=== PATIENT | female | born 2000 | race Caucasian/White ===

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

== ENCOUNTER 2018-01-07 11:03 | Emergency (ER) | payer BC, OTHER ==
[2018-01-07 11:21] VITALS: PULSE 82
--- NOTE | 2018-01-07 11:53 | ED ---
Back Pain HPI - General Chief Complaint: Back Pain/Injury Stated Complaint: [facility] - BACK INJURY Time Seen by Provider: 01/07/18 11:23 Source: patient Limitations: no limitations - History of Present Illness Initial Comments: 17-year-old female presented for evaluation of right lower back pain. 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 She states since then she has had continued pain that will occasionally radiate down her leg to her right big toe. Denies any saddle anesthesia, lower extremity weakness, or urinary or bladder regularities. There is no midline pain she denies any drug use. - Related Data Home Medications Medication Instructions Recorded Confirmed Apri 28 1 tab PO DAILY 11/03/17 01/07/18 Previous Rx's Medication Instructions Recorded HYDROcodone/APAP 5-325MG [[place] 1 - 2 tab PO Q6HR PRN #12 tab 01/07/18 5-325] Allergies Allergy/AdvReac Type Severity Reaction Status Date / Time No Known Allergies Allergy Verified 01/07/18 11:30 Review of Systems ROS Statement: Those systems with pertinent positive or pertinent negative responses have been documented in the HPI. ROS Other: All systems not noted in ROS Statement are negative. Constitutional: Denies: fever, chills Respiratory: Denies: cough, dyspnea Cardiovascular: Denies: chest pain, palpitations Gastrointestinal: Denies: abdominal pain, nausea, vomiting Genitourinary: Reports: other (Negative for Urinary retention or bowel incontinence). Denies: urgency, dysuria Musculoskeletal: Reports: back pain Neurological: Reports: other (Pain radiating down the right leg). Denies: weakness, numbness, paresthesias, abnormal gait Past Medical History Past Medical History: No Reported History History of Any Multi-Drug Resistant Organisms: MRSA Date of last positivie culture/infection: 2014 MDRO Source:: foot Past Surgical History: Adenoidectomy, Ear Surgery, Hernia Repair, Tonsillectomy Additional Past Surgical History / Comment(s): jaw Past Psychological History: No Psychological Hx Reported Smoking Status: Never smoker Past Alcohol Use History: None Reported Past Drug Use History: None Reported General Exam Limitations: no limitations General appearance: alert, in no apparent distress Head exam: Present: atraumatic, normocephalic, normal inspection Eye exam: Present: normal appearance, PERRL, EOMI Respiratory exam: Present: normal lung sounds bilaterally. Absent: respiratory distress Cardiovascular Exam: Present: regular rate, normal rhythm Rectal exam: Present: deferred Extremities exam: Present: normal inspection, full ROM Back exam: Present: tenderness, muscle spasm, paraspinal tenderness. Absent: vertebral tenderness Neurological exam: Present: alert, oriented X3, CN II-XII intact, normal gait, reflexes normal. 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 She states that pain radiates down her right leg. On physical examination there is right paraspinal muscle tenderness that also feels to be in spasm. There is no saddle anesthesia, lower extremity weakness, or decrease in reflexes. There is no midline vertebral tenderness to palpation no overlying erythema or bulging. Straight leg test on the right is positive and negative on the left. Concern for lumbar radiculopathy and will send home with limitations for work and instructions to follow-up with her primary care physician for further treatment and evaluation. She is further advised to return to this facility if her symptoms should worsen or persist. The patient acknowledged an understanding of all information provided and agreed with this plan of care. Disposition Clinical Impression: Lumbar radiculopathy, Mechanical back pain Disposition: HOME SELF-CARE Condition: Stable Instructions: Acute Low Back Pain (ED) Additional Instructions: Please use medication as discussed. Please follow up with family doctor if symptoms have not improved over the next two days. Please return to the emergency room if your symptoms increase or worsen or for any other concerns. Prescriptions: HYDROcodone/APAP 5-325MG [[place] 5-325] 1 - 2 tab PO Q6HR PRN #12 tab PRN Reason: Analgesia Is patient prescribed a controlled substance at d/c from ED?: Yes When asked, does pt state using other controlled substances?: No If prescribed controlled substance>3 days was MAPS reviewed?: Prescribed <3 Days If opioid is for acute pain is fill amount 7 days or less?: Yes If Rx opioid, was Start Talking consent form obtained?: No Referrals: Feliz Garcia MD [STAFF PHYSICIAN] - 1-2 days Time of Disposition: 11:53
[2018-01-07 12:08] VITALS: BP 121/68; RESP 16; TEMP 97.8
== END 2018-01-07 12:00 | disposition home or self-care (01) ==
LOC: EC 11:03
DX: M54.16 Radiculopathy, lumbar region (principal); Z86.14 Personal history of Methicillin resistant Staphylococcus aureus infection; Z79.3 Long term (current) use of hormonal contraceptives
CPT/HCPCS: 99283

== ENCOUNTER → 2018-01-08 | Outpatient (CLI) | payer BC ==
--- NOTE | 2018-01-08 14:38 | XR ---
EXAMINATION TYPE: XR lumbar spine 2 or 3V DATE OF EXAM: 01/08/2018 CLINICAL HISTORY: Low back pain after lifting injury 2 weeks ago. TECHNIQUE: Frontal and lateral images of the lumbar spine are obtained. COMPARISON: None FINDINGS: There are 5 lumbar type vertebral bodies identified. There is transitional-type L6 vertebr a sacralized on the right. The lumbar spine shows slight dextroconvex scoliotic curvature centered L 3 level without evidence of acute fracture or dislocation. There is mild disc space narrowing L5-L6 a nd moderate disc space narrowing L6-S1 levels. Vertebral body heights and disk space heights otherwis e are within normal limits. The overlying soft tissue appears unremarkable. IMPRESSION: As above.
== END | disposition home or self-care (01) ==
LOC: RADXRMAIN 14:13
PROVIDERS: ATTEND Emergency Medicine
DX: M48.061 Spinal stenosis, lumbar region without neurogenic claudication (principal); M43.8X6 Other specified deforming dorsopathies, lumbar region
CPT/HCPCS: 72100

== ENCOUNTER → 2018-01-28 | Outpatient (CLI) | payer OTHER ==
--- NOTE | 2018-01-29 10:39 | MR ---
EXAMINATION TYPE: MR lumbar spine wo con DATE OF EXAM: 01/28/2018 COMPARISON: 01/08/2018 HISTORY: Strain of Muscle, fascia and tendon of low back TECHNIQUE: Multiplanar, multisequence images of the lumbar spine were acquired. TECHNIQUE: The lumbar spine vertebral body heights and alignment are maintained. A too small to accur ately characterize 5 mm partially exophytic left renal lesion is seen on T2 nonfat sat axial image 28 . This is T1 hypointense. There is intervertebral disc desiccation at L5-S1 (what is described as S1 on today's examination with a rudimentary disc is described as an L6 transitional-type vertebral body on the prior exam of 01/08/2018). Conus medullaris is unremarkable terminating at L1. L1-L2: Normal disc appearance without desiccation. No herniation, protrusion or disc bulging. No ca nal stenosis is present. Foramina are patent bilaterally. L2-L3: Normal disc appearance without desiccation. No herniation, protrusion or disc bulging. No ca nal stenosis is present. Foramina are patent bilaterally. L3-L4: Normal disc appearance without desiccation. No herniation, protrusion or disc bulging. No ca nal stenosis is present. Foramina are patent bilaterally. L4-L5: There is a very small broad-based disc bulge as there is flattening in the usual disc concavit y posteriorly without disc desiccation. No herniation, protrusion or disc bulging. No canal stenosi s is present. Foramina are patent bilaterally. L5-S1: There is a small central disc herniation superimposed upon a broad-based disc bulge that creat es mild bilateral neural foraminal narrowing without significant spinal canal stenosis is the spinal canal measures 1.0 cm in anterior posterior dimension. This does abut the ventral thecal sac. There i s mild facet arthropathy at this level. IMPRESSION: 1. Small central disc herniation at L5-S1 and degenerative disc disease resulting in mild bilateral n eural foraminal narrowing without spinal canal stenosis (note is made of rudimentary disc at S1-S2 no payton on today's examination with S1 described as an L6 transitional-type vertebrae on the prior exam). 2. Too small to accurately characterize left renal lesion that could represent a renal cyst. 3. No evidence of vertebral body height loss or malalignment.
== END | disposition home or self-care (01) ==
LOC: RADMRIMAIN 12:44
PROVIDERS: ATTEND Emergency Medicine
DX: S39.012D Strain of muscle, fascia and tendon of lower back, subsequent encounter (principal); M99.73 Connective tissue and disc stenosis of intervertebral foramina of lumbar region; M51.27 Other intervertebral disc displacement, lumbosacral region; M51.37 Other intervertebral disc degeneration, lumbosacral region
CPT/HCPCS: 72148

== ENCOUNTER → 2019-08-02 | Outpatient (CLI) | payer MEDICAID ==
--- NOTE | 2019-08-02 08:39 | CT ---
EXAMINATION TYPE: CT abdomen w con DATE OF EXAM: 08/02/2019 HISTORY: Upper Umbilical pain for patient. Incisional hernia per order. CT DLP: 443.5mGycm Automated Exposure Control for Dose Reduction was Utilized. CONTRAST: CT scan of the abdomen is performed without oral but with IV Contrast, patient injected with 100 mL o f Isovue 300. COMPARISON: None. FINDINGS: LUNG BASES: No significant abnormality is appreciated. LIVER/GB: No significant abnormality is appreciated. PANCREAS: No significant abnormality is seen. SPLEEN: No significant abnormality is seen. ADRENALS: No significant abnormality is seen. KIDNEYS: No significant abnormality is seen. BOWEL: No suspicious small or large bowel dilatation. Suboptimal evaluation bowel without enteric co ntrast. Mild wall thickening of jejunal loops presumed related to poor distention. LYMPH NODES: No greater than 1cm abdominal or pelvic lymph nodes are appreciated. OSSEOUS STRUCTURES: Transitional type vertebra lumbosacral junction. Posterior right paracentral disc herniation L5-L6 level with facet arthropathy effacing the anterior thecal sac axial image 58. OTHER: Metallic umbilical ornament. No suspicious ventral wall hernia IMPRESSION: No significant acute finding is seen to account for patient's clinical symptoms of upper umbilical pain.
== END | disposition home or self-care (01) ==
LOC: RADCTMAIN 07:34
PROVIDERS: ATTEND Surgery
DX: K43.0 Incisional hernia with obstruction, without gangrene (principal)
CPT/HCPCS: 74160; Q9967

== ENCOUNTER 2019-12-24 08:07 | Emergency (ER) | payer MEDICAID ==
[2019-12-24 08:13] VITALS: TEMP 98.1
[2019-12-24] MEDS ORDERED: ACETAMINOPHEN TAB 325 MG TAB PO STA (08:28)
[2019-12-24] MEDS ORDERED: FAMOTIDINE 20 MG/2 ML VIAL IV STA (08:29)
[2019-12-24] MEDS ORDERED: ONDANSETRON 4 MG/2 ML VIAL IVP STA (08:29)
--- NOTE | 2019-12-24 08:31 | ED ---
General Adult HPI - General Chief complaint: Shortness of Breath Stated complaint: Cough Time Seen by Provider: 12/24/19 08:16 Source: patient, RN notes reviewed Mode of arrival: ambulatory Limitations: no limitations - History of Present Illness Initial comments: Patient is a pleasant 19-year-old female presenting to the emergency Department with complaints of concern for coronal virus. 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 He should start of symptoms 2 days ago. Patient has chills. Patient has cough and dyspnea. Cough is dry nonproductive. Patient does have intermittent abdominal cramping with nausea and diarrhea. Patient has headaches. - Related Data Home Medications Medication Instructions Recorded Confirmed Apri 28 1 tab PO DAILY 11/03/17 01/07/18 Previous Rx's Medication Instructions Recorded HYDROcodone/APAP 5-325MG [[place] 1 - 2 tab PO Q6HR PRN #12 tab 01/07/18 5-325] Allergies Allergy/AdvReac Type Severity Reaction Status Date / Time No Known Allergies Allergy Verified 12/24/19 08:14 Review of Systems ROS Statement: Those systems with pertinent positive or pertinent negative responses have been documented in the HPI. ROS Other: All systems not noted in ROS Statement are negative. Constitutional: Denies: fever Eyes: Denies: eye pain ENT: Denies: ear pain Respiratory: Reports: cough, dyspnea Cardiovascular: Denies: chest pain Endocrine: Reports: fatigue Gastrointestinal: Reports: abdominal pain, nausea, diarrhea. Denies: vomiting Genitourinary: Denies: dysuria Musculoskeletal: Denies: back pain Skin: Denies: rash Neurological: Denies: weakness Past Medical History Past Medical History: No Reported History History of Any Multi-Drug Resistant Organisms: MRSA Date of last positivie culture/infection: 2014 MDRO Source:: foot Past Surgical History: Adenoidectomy, Ear Surgery, Hernia Repair, Tonsillectomy Additional Past Surgical History / Comment(s): jaw Past Psychological History: No Psychological Hx Reported Smoking Status: Never smoker Past Alcohol Use History: Occasional Past Drug Use History: None Reported General Exam Limitations: no limitations General appearance: alert, in no apparent distress Head exam: Present: normocephalic Eye exam: Present: normal appearance, PERRL ENT exam: Present: normal oropharynx Neck exam: Present: normal inspection Respiratory exam: Present: normal lung sounds bilaterally Cardiovascular Exam: Present: regular rate, normal rhythm Expanded Peripheral pulses: 2+: Dorsalis Pedis (R), Dorsalis Pedis (L) GI/Abdominal exam: Present: soft. Absent: tenderness Extremities exam: Present: normal inspection. Absent: pedal edema, calf tenderness Neurological exam: Present: alert Psychiatric exam: Present: normal affect, normal mood Skin exam: Present: normal color Course Vital Signs 12/24/19 12/24/19 12/24/19 08:09 08:16 09:13 Temperature 98.1 F Pulse Rate 90 89 Respiratory 18 18 18 Rate Blood Pressure 131/90 O2 Sat by Pulse 100 99 Oximetry EKG Findings - EKG Comments: EKG Findings:: Normal sinus rhythm 72. KS 140. QRS 82. QT 414. QTC 453. Normal axis. Normal QRS. No acute ST change. Sinus arrhythmia. Medical Decision Making - Medical Decision Making Patient reevaluated and resting comfortably in bed. Patient is feeling somewhat better. Patient is updated on results and need for follow-up. Patient given note for off work until released by primary care physician. Patient is made aware that there is possibility of coronavirus infection even if test comes back negative. - Lab Data Result diagrams: 12/24/19 09:00 12/24/19 09:00 Lab Results 12/24/19 12/24/19 12/24/19 Range/Units 09:00 09:00 09:00 WBC 8.7 (3.8-10.6) k/uL RBC 5.05 (3.80-5.40) m/uL Hgb 14.9 (11.4-16.0) gm/dL Hct 45.0 (34.0-46.0) % MCV 89.1 (80.0-100.0) fL MCH 29.6 (25.0-35.0) pg MCHC 33.2 (31.0-37.0) g/dL RDW 12.8 (11.5-15.5) % Plt Count 261 (150-450) k/uL Neutrophils % 65 % Lymphocytes % 25 % Monocytes % 6 % Eosinophils % 1 % Basophils % 1 % Neutrophils # 5.6 (1.3-7.7) k/uL Lymphocytes # 2.2 (1.0-4.8) k/uL Monocytes # 0.5 (0-1.0) k/uL Eosinophils # 0.1 (0-0.7) k/uL Basophils # 0.0 (0-0.2) k/uL PT 9.4 (9.0-12.0) sec INR 0.9 (<1.2) APTT 24.5 (22.0-30.0) sec D-Dimer 0.18 (<0.60) mg/L FEU Sodium 139 (137-145) mmol/L Potassium 3.9 (3.5-5.1) mmol/L Chloride 106 (98-107) mmol/L Carbon Dioxide 24 (22-30) mmol/L Anion Gap 9 mmol/L BUN 11 (7-17) mg/dL Creatinine 0.78 (0.52-1.04) mg/dL Est GFR (CKD-EPI)AfAm >90 (>60 ml/min/1.73 sqM) Est GFR (CKD-EPI)NonAf >90 (>60 ml/min/1.73 sqM) Glucose 92 (74-99) mg/dL Plasma Lactic Acid [place] (0.7-2.0) mmol/L Calcium 9.7 (8.4-10.2) mg/dL Magnesium 2.2 (1.6-2.3) mg/dL Total Bilirubin 0.3 (0.2-1.3) mg/dL AST 24 (14-36) U/L ALT 16 (4-34) U/L Alkaline Phosphatase 81 (38-126) U/L Lactate Dehydrogenase 533 (313-618) U/L C-Reactive Protein <5.0 (<10.0) mg/L Total Protein 7.6 (6.3-8.2) g/dL Albumin 4.7 (3.5-5.0) g/dL Urine Color Urine Appearance (Clear) Urine pH (5.0-8.0) Ur Specific [place] (1.001-1.035) Urine Protein (Negative) Urine Glucose (UA) (Negative) Urine Ketones (Negative) Urine Blood (Negative) Urine Nitrite (Negative) Urine Bilirubin (Negative) Urine Urobilinogen (<2.0) mg/dL Ur Leukocyte Esterase (Negative) Urine RBC (0-5) /hpf Urine WBC (0-5) /hpf Ur Squamous Epith Cells (0-4) /hpf Amorphous Sediment (None) /hpf Urine Bacteria (None) /hpf Urine Mucus (None) /hpf Urine HCG, Qual (Not Detectd) 12/24/19 12/24/19 12/24/19 Range/Units 09:00 09:00 09:00 WBC (3.8-10.6) k/uL RBC (3.80-5.40) m/uL Hgb (11.4-16.0) gm/dL Hct (34.0-46.0) % MCV (80.0-100.0) fL MCH (25.0-35.0) pg MCHC (31.0-37.0) g/dL RDW (11.5-15.5) % Plt Count (150-450) k/uL Neutrophils % % Lymphocytes % % Monocytes % % Eosinophils % % Basophils % % Neutrophils # (1.3-7.7) k/uL Lymphocytes # (1.0-4.8) k/uL Monocytes # (0-1.0) k/uL Eosinophils # (0-0.7) k/uL Basophils # (0-0.2) k/uL PT (9.0-12.0) sec INR (<1.2) APTT (22.0-30.0) sec D-Dimer (<0.60) mg/L FEU Sodium (137-145) mmol/L Potassium (3.5-5.1) mmol/L Chloride (98-107) mmol/L Carbon Dioxide (22-30) mmol/L Anion Gap mmol/L BUN (7-17) mg/dL Creatinine (0.52-1.04) mg/dL Est GFR (CKD-EPI)AfAm (>60 ml/min/1.73 sqM) Est GFR (CKD-EPI)NonAf (>60 ml/min/1.73 sqM) Glucose (74-99) mg/dL Plasma Lactic Acid [place] 1.2 (0.7-2.0) mmol/L Calcium (8.4-10.2) mg/dL Magnesium (1.6-2.3) mg/dL Total Bilirubin (0.2-1.3) mg/dL AST (14-36) U/L ALT (4-34) U/L Alkaline Phosphatase (38-126) U/L Lactate Dehydrogenase (313-618) U/L C-Reactive Protein (<10.0) mg/L Total Protein (6.3-8.2) g/dL Albumin (3.5-5.0) g/dL Urine Color Light Yellow Urine Appearance Clear (Clear) Urine pH 6.0 (5.0-8.0) Ur Specific [place] 1.009 (1.001-1.035) Urine Protein Negative (Negative) Urine Glucose (UA) Negative (Negative) Urine Ketones Negative (Negative) Urine Blood Negative (Negative) Urine Nitrite Negative (Negative) Urine Bilirubin Negative (Negative) Urine Urobilinogen <2.0 (<2.0) mg/dL Ur Leukocyte Esterase Trace H (Negative) Urine RBC 2 (0-5) /hpf Urine WBC 2 (0-5) /hpf Ur Squamous Epith Cells 1 (0-4) /hpf Amorphous Sediment Occasional H (None) /hpf Urine Bacteria Rare H (None) /hpf Urine Mucus Occasional H (None) /hpf Urine HCG, Qual Not Detected (Not Detectd) - Radiology Data Radiology results: image reviewed (Chest x-ray shows no acute process) Disposition Clinical Impression: Viral syndrome Disposition: HOME SELF-CARE Condition: Stable Instructions (If sedation given, give patient instructions): Viral Syndrome (ED) Additional Instructions: [id number] Tylenol as needed. Please follow-up with primary care physician in the next couple days for recheck. Self quarantined. No work until released by primary care physician. Coronavirus test is still pending. Return for difficulty breathing, uncontrolled vomiting, abdominal pain, worsening symptoms or other concerns. Is patient prescribed a controlled substance at d/c from ED?: No Referrals: Alok Alvarado MD [Primary Care Provider] - 1-2 days Time of Disposition: 10:20
--- NOTE | 2019-12-24 09:05 | XR ---
EXAMINATION TYPE: XR chest 1V portable DATE OF EXAM: 12/24/2019 HISTORY: Suspected COVID-19 pneumonia. REFERENCE: Previous study dated 11/03/2017. FINDINGS: Heart size upper limits of normal. The lungs are clear. Pleural space are clear. IMPRESSION: NO ACUTE INTRATHORACIC ABNORMALITY.
[2019-12-24 09:33] LABS: ALT 16 U/L (4-34); AST 24 U/L (14-36); African American GFR (CKD) >90 (>60 ml/min/1.73 sqM); Albumin 4.7 g/dL (3.5-5.0); Alkaline Phosphatase 81 U/L (38-126); Anion Gap 9 mmol/L; Blood Urea Nitrogen 11 mg/dL (7-17); C Reactive Protein <5.0 mg/L (<10.0); Calcium 9.7 mg/dL (8.4-10.2); Carbon Dioxide 24 mmol/L (22-30); Chloride 106 mmol/L (98-107); Glucose 92 mg/dL (74-99); LDH 533 U/L (313-618); Magnesium 2.2 mg/dL (1.6-2.3); Non-African American GFR(CKD) >90 (>60 ml/min/1.73 sqM); Potassium 3.9 mmol/L (3.5-5.1); Sodium 139 mmol/L (137-145); Total Bilirubin 0.3 mg/dL (0.2-1.3); Total Protein 7.6 g/dL (6.3-8.2)
[2019-12-24 09:34] LABS: Amorphous Sediment,Urine Occasional /hpf; Appearance,Urine Clear (Clear); Bacteria,Urine Rare /hpf; Bilirubin,Urine Negative (Negative); Blood,Urine Negative (Negative); Color,Urine Light Yellow; Glucose,Urine (UA) Negative (Negative); Ketones,Urine Negative (Negative); Leukocyte Esterase,Urine Trace (Negative); Mucus,Urine Occasional /hpf; Nitrite,Urine Negative (Negative); Protein,Urine Negative (Negative); RBC,Urine 2 /hpf (0-5); Specific Gravity,Urine 1.009 (1.001-1.035); Squamous Epithelial Cell,Urine 1 /hpf (0-4); Urobilinogen,Urine <2.0 mg/dL (<2.0); WBC,Urine 2 /hpf (0-5)
[2019-12-24 09:40] LABS: D-Dimer 0.18 mg/L FEU (<0.60); INR 0.9 (<1.2); Partial Thromboplastin Time 24.5 sec (22.0-30.0); Prothrombin Time 9.4 sec (9.0-12.0)
[2019-12-24 09:45] LABS: Basophils % (A) 1 %; Eosinophils # (A) 0.1 k/uL (0-0.7); Eosinophils % (A) 1 %; HGB 14.9 gm/dL (11.4-16.0); Lymphocytes # (A) 2.2 k/uL (1.0-4.8); Lymphocytes % (A) 25 %; MCH 29.6 pg (25.0-35.0); MCHC 33.2 g/dL (31.0-37.0); MCV 89.1 fL (80.0-100.0); Mean Platelet Volume 7.7; Monocytes # (A) 0.5 k/uL (0-1.0); Monocytes % (A) 6 %; Neutrophils # (A) 5.6 k/uL (1.3-7.7); Neutrophils % (A) 65 %; Platelet Count 261 k/uL (150-450); RBC 5.05 m/uL (3.80-5.40); RDW 12.8 % (11.5-15.5); WBC 8.7 k/uL (3.8-10.6)
[2019-12-24 10:33] VITALS: BP 120/82; PULSE 61; RESP 16
[2019-12-24 16:24] LABS: Ferritin 47.1 ng/mL (10.0-291.0)
== END 2019-12-24 10:33 | disposition home or self-care (01) ==
LOC: EC 08:07
DX: Z03.818 Encounter for observation for suspected exposure to other biological agents ruled out (principal); B34.9 Viral infection, unspecified
CPT/HCPCS: 36415; 93005; 85379; 80053; 82728; 83605; 83615; 83735; 85025; 85610; 85730; 86140; 81001; 81025; 84145; 87635; 71045; 99285; 96374; 96375; J2405

== ENCOUNTER → 2020-11-15 | Outpatient (CLI) | payer MEDICAID ==
[2020-11-15 20:01] LABS: HCT 43.1 % (37.2-46.3); HGB 13.9 g/dL (12.0-15.0); MCH 29.4 pg (27.0-32.0); MCHC 32.3 g/dL (32.0-37.0); MCV 91.3 fL (80.0-97.0); Mean Platelet Volume 10.9 fL (9.5-12.2); Platelet Count 226 X 10*3/uL (140-440); RBC 4.72 X 10*6/uL (4.10-5.20); RDW 13.7 % (11.5-14.5)
[2020-11-15 21:35] LABS: HIV 2 AB Non-Reactive (Non-Reactive); HIV AB P24 Non-Reactive (Non-Reactive); HIV P24 AG Non-Reactive (Non-Reactive)
[2020-11-16 03:45] LABS: Hepatitis B Surface Antigen Non-Reactive (Non-Reactive)
== END | disposition home or self-care (01) ==
LOC: LABWHC1 10:54
PROVIDERS: ATTEND Obstetrics & Gynecology
DX: Z34.01 Encounter for supervision of normal first pregnancy, first trimester (principal)
CPT/HCPCS: 36415; 85027; 86762; 86780; 86850; 86900; 86901; 87340; 87390

== ENCOUNTER 2021-06-03 03:54 | Inpatient (IN) | payer MEDICAID ==
[2021-06-03] MEDS ORDERED: METHYLERGONOVINE 0.2 MG/ML 1 ML AMP IM PRN (04:17)
[2021-06-03] MEDS ORDERED: TERBUTALINE 1 MG/ML VIAL SQ PRN (04:17)
[2021-06-03] MEDS ORDERED: OXYTOCIN 10 UNIT/ML 1 ML VIAL IM PRN (04:17)
[2021-06-03] MEDS ORDERED: CARBOPROST TROMETHAMINE 250 MCG/ML 1 ML AMP IM PRN (04:17)
[2021-06-03] MEDS ORDERED: LIDOCAINE 0.5% (PF) 5 MG/ML (50 ML SDV) SQ PRN (04:17)
[2021-06-03] MEDS ORDERED: OXYTOCIN 30 UNITS/500 ML NS 30 UNIT in SALINE 1 500ML.BAG IV SCH ×2 (04:30→15:30)
[2021-06-03 05:17] LABS: Basophils # (A) 0.1 k/uL (0-0.2); Basophils % (A) 0 %; Eosinophils # (A) 0.1 k/uL (0-0.7); Eosinophils % (A) 1 %; HCT 38.6 % (34.0-46.0); HGB 12.6 gm/dL (11.4-16.0); Lymphocytes # (A) 1.9 k/uL (1.0-4.8); Lymphocytes % (A) 14 %; MCH 27.2 pg (25.0-35.0); MCHC 32.6 g/dL (31.0-37.0); MCV 83.3 fL (80.0-100.0); Mean Platelet Volume 9.2; Monocytes # (A) 0.6 k/uL (0-1.0); Monocytes % (A) 4 %; Neutrophils # (A) 11.2 k/uL (1.3-7.7); Neutrophils % (A) 79 %; Platelet Count 207 k/uL (150-450); RBC 4.64 m/uL (3.80-5.40); RDW 13.8 % (11.5-15.5); WBC 14.1 k/uL (3.8-10.6)
[2021-06-03] MEDS: LACTATED RINGERS 1,000 ML IV SCH ×3 (05:19→13:43)
[2021-06-03 05:55] VITALS: RESP 16
[2021-06-03] MEDS: BUTORPHANOL 1 MG/ML 1 ML VIAL IV PRN ×2 (05:56→08:34)
[2021-06-03] MEDS ORDERED: PENICILLIN G POTASSIUM 5,000,000 UNIT in DEXTROSE 5% IN WATER 100 ML IVPB STA ×2 (09:13)
--- NOTE | 2021-06-03 09:18 | P.HPOB ---
History of Present Illness H&P Date: 06/03/21 Chief Complaint: 39+ weeks, spontaneous rupture membranes, labor The patient is a 21-year-old 1 para 0 admitted at 39+ weeks as established by last menstrual period and confirmed by seven-week ultrasound. She is admitted with documented spontaneous rupture of membranes of for clear fluid. Her has been uncomplicated and group B strep status is negative. On labor and delivery, all signs reassuring with a category 1 heart rate tracing. Rupture of membranes occurred approximately 12 hours ago and, as the patient is still remote from delivery, antibody prophylaxis will be started. Obstetrical history: 1 para 0 with current statistics listed in history of present illness. EDC of 06/07/2021 was established by last menstrual period and confirmed by seven-week ultrasound. Laboratory workup demonstrates a blood type of O+ with a negative antibody screen. Rubella status is immune. The remainder of the laboratory workup was within normal limits. One hour Glucola was normal and group B strep status is negative. Gynecologic history: Unremarkable with no history of any infections to include STDs. Review of Systems Review of systems is confined to history of present illness. Past Medical History Past Medical History: No Reported History Additional Past Medical History / Comment(s): herniated discs in back History of Any Multi-Drug Resistant Organisms: MRSA Date of last positivie culture/infection: 2014 MDRO Source:: foot Past Surgical History: Adenoidectomy, Ear Surgery, Hernia Repair, Tonsillectomy Additional Past Surgical History / Comment(s): jaw Past Anesthesia/Blood Transfusion Reactions: No Reported Reaction Past Psychological History: No Psychological Hx Reported Smoking Status: Never smoker Past Alcohol Use History: None Reported, Occasional Past Drug Use History: None Reported - Past Family History Mother Family Medical History: No Reported History Medications and Allergies Home Medications Medication Instructions Recorded Confirmed Type Pnv No.95/Ferrous Fum/Folic AC 1 tab PO DAILY 06/03/21 06/03/21 History [ Multivitamin Tablet] Allergies Allergy/AdvReac Type Severity Reaction Status Date / Time No Known Allergies Allergy Verified 06/03/21 04:15 Exam Vital Signs Temp Pulse Resp BP Pulse Ox 06/03/21 04:33 97.1 F L 80 16 138/94 99 06/03/21 04:14 97.1 F L 80 14 138/94 99 Intake and Output 1006/03/21 06/03/21 22:59 06:59 14:59 Other: # Voids 1 Weight 79.832 kg In general, this is a well-developed, well-nourished white female in some discomfort as she is in active labor. Her heart has a regular rhythm and rate without murmur. Her lungs are clear to auscultation bilaterally in all juarez. Her abdomen is gravid, nondistended, has normal active bowel sounds, soft, nontender, and without any palpable masses aside from uterine fundus. Her extremities are without any cyanosis, clubbing, or edema and are nontender to palpation bilaterally. Digital cervical examination performed by the nursing staff demonstrates her cervix to approximate 3 cm dilated, 90% effaced, the vertex in presentation at -1 station. Spontaneous rupture of membranes has been documented. Results Result Diagrams: 06/03/21 05:00 Abnormal Lab Results - Last 24 Hours (Table) 06/03/21 Range/Units 05:00 WBC 14.1 H (3.8-10.6) k/uL Neutrophils # 11.2 H (1.3-7.7) k/uL Assessment and Plan (1) Spontaneous rupture of amniotic membranes Current Visit: Yes Status: Acute Code(s): YMJ4642 - SNOMED Code(s): 707526819 (2) Active labor at term Current Visit: Yes Status: Acute Code(s): NRF7225 - SNOMED Code(s): 03559618 Plan: The patient has been admitted for active management of labor. She will have close maternal and surveillance and expectant management will be practiced. She is a good candidate for either IV or epidural analgesia. I will begin penicillin antibiotic prophylaxis given her documented rupture of membranes for now 12 hours while she is still remote from delivery. Additionally, I will add Pitocin augmentation within the next hour.
[2021-06-03] MEDS ORDERED: SODIUM CHLORIDE 0.9% 100 ML BAG ONE (09:57)
[2021-06-03] MEDS ORDERED: fentaNYL (PF) 50 MCG/ML 5 ML AMP ONE (09:57)
[2021-06-03] MEDS ORDERED: ROPIVACAINE 5MG/ML 20ML VIAL ONE (09:57)
[2021-06-03] MEDS ORDERED: ROPIVACAINE 100 MG, fentaNYL (PF). 200 MCG in SODIUM CHLORIDE 0.9% 76 ML EPIDURAL ONE (10:15)
[2021-06-03] MEDS ORDERED: PENICILLIN G POTASSIUM 2,500,000 UNIT in DEXTROSE 5% IN WATER 100 ML IVPB SCH ×2 (13:15)
[2021-06-03] MEDS ORDERED: diphenhydrAMINE 50 MG/ML 1 ML VIAL IVP PRN ×2 (15:20)
[2021-06-03] MEDS ORDERED: diphenhydrAMINE 50 MG CAP PO PRN (15:20)
[2021-06-03] MEDS ORDERED: HYDROcodone/APAP 7.5-325MG 1 EACH TAB PO PRN (15:20)
[2021-06-03] MEDS ORDERED: LANOLIN CREAM 5 GM TUBE TOPICAL PRN (15:20)
[2021-06-03] MEDS ORDERED: SIMETHICONE 80 MG CHEWABLE PO PRN (15:20)
[2021-06-03] MEDS ORDERED: ACETAMINOPHEN TAB 325 MG TAB PO PRN (15:20)
[2021-06-03] MEDS ORDERED: HYDROCORTISONE 2.5% RECTAL CREAM 30 GM TUBE RECTAL PRN (15:20)
[2021-06-03] MEDS ORDERED: ZOLPIDEM 5 MG TAB PO PRN (15:20)
[2021-06-03] MEDS ORDERED: HYDROcodone/APAP 5-325MG 1 EACH TAB PO PRN (15:20)
[2021-06-03] MEDS ORDERED: IBUPROFEN 600 MG TAB PO PRN (15:20)
[2021-06-03] MEDS ORDERED: diphenhydrAMINE 25 MG CAP PO PRN (15:20)
[2021-06-03] MEDS ORDERED: BENZOCAINE/MENTHOL SPRAY 1 GM/SPRAY AEROSOL TOPICAL PRN (15:20)
--- NOTE | 2021-06-03 15:24 | P.PROBDLV ---
Vaginal Delivery Note - . Vaginal Delivery Note: The patient is a 21-year-old 1 para 0 admitted at 39-3/7 weeks by good dating parameters. She is admitted with documented spontaneous rupture of membranes and in early labor. Her has been uncomplicated. On labor and delivery, all signs reassuring with a category 1 heart rate tracing. She made very slow progress through the latent phase of labor and ultimately had an epidural catheter placed around the onset of the active phase of labor which time Pitocin augmentation was begun as well. She then progressed fairly quickly through the active phase of labor to complete and pushed for approximately 30 minutes to a normal spontaneous vaginal delivery of a viable 7 lbs. 4 oz. baby girl with Apgars of 9 at 1 minute and 9 at 5 minutes delivered in the left occiput anterior position. The placenta was delivered spontaneously, intact, and grossly normal with a grossly normal, centrally inserted three-vessel cord. There were no significant lacerations the perineum, vagina, or cervix. Estimated blood loss for the case was approximately 150 mL or less. There were no complications. All sponge, instrument, and needle counts were correct. Both mother and infant are resting comfortably in recovery.
[2021-06-03] MEDS: SENNOSIDES-DOCUSATE SODIUM 1 EACH TAB PO SCH (19:38)
[2021-06-04] MEDS: SENNOSIDES-DOCUSATE SODIUM 1 EACH TAB PO SCH (04:29)
[2021-06-04 08:19] VITALS: PULSE 75
[2021-06-04 08:40] LABS: Basophils % (A) 0 %; Eosinophils # (A) 0.1 k/uL (0-0.7); Eosinophils % (A) 0 %; HCT 35.6 % (34.0-46.0); HGB 11.5 gm/dL (11.4-16.0); Lymphocytes # (A) 1.5 k/uL (1.0-4.8); Lymphocytes % (A) 12 %; MCH 27.4 pg (25.0-35.0); MCHC 32.3 g/dL (31.0-37.0); MCV 84.9 fL (80.0-100.0); Mean Platelet Volume 8.8; Monocytes # (A) 0.6 k/uL (0-1.0); Monocytes % (A) 5 %; Neutrophils # (A) 10.5 k/uL (1.3-7.7); Neutrophils % (A) 81 %; Platelet Count 191 k/uL (150-450); RBC 4.19 m/uL (3.80-5.40); WBC 12.9 k/uL (3.8-10.6)
--- NOTE | 2021-06-04 08:54 | P.DS ---
Providers Date of admission: 06/03/21 04:27 Expected date of discharge: 06/04/21 Attending physician: Jorge Quinones Primary care physician: Stated None - Discharge Diagnosis(es) (1) Spontaneous rupture of amniotic membranes Current Visit: Yes Status: Acute (2) Active labor at term Current Visit: Yes Status: Acute (3) Normal spontaneous vaginal delivery Current Visit: Yes Status: Acute Hospital Course: The patient is a 21-year-old 1 para 0 admitted at 39+ weeks by good dating parameters. She is admitted with documented spontaneous rupture of membranes with clear fluid. She was in early labor but ultimately required Pitocin augmentation around the onset of the active phase of labor and after an epidural catheter in place. Antibiotic prophylaxis have been started given the patient's slow progress and relative length of rupture of membranes. She then progressed fairly quickly through the active phase of labor to complete and pushed over the course of approximately 30 minutes to a normal spontaneous vaginal delivery of a viable 7 lbs. 4 oz. baby girl with Apgars of 9 at 1 minute and 9 at 5 minutes. Her course was unremarkable with vital signs remained stable and her temperature was afebrile throughout. She was deemed stable for discharge on day #1 was discharged home to follow-up in the office in 6 weeks' time routinely. Discharge instructions included calling for any significantly increased bleeding or foul-smelling lochia, significantly increased fever abdominal pain, perineal complaints, breast complaints, or anything else that concerned her. She was additionally instructed to have nothing in the vagina for at least 6 weeks time to include intercourse. She understood her instructions and agrees to follow up as noted above. Discharge medications included continued vitamins as she has opted to breast- feed. She was otherwise to use [id number] analgesic pain medications as needed. Maternal blood type is O+ and rubella status is immune. Procedures: #1. Antibiotic prophylaxis #2. Epidural analgesia #3. Pitocin augmentation #4. Normal spontaneous vaginal delivery Patient Condition at Discharge: Stable Plan - Discharge Summary New Discharge Prescriptions: No Action Pnv No.95/Ferrous Fum/Folic AC [ Multivitamin Tablet] 1 tab PO DAILY Discharge Medication List Pnv No.95/Ferrous Fum/Folic AC [ Multivitamin Tablet] 1 tab PO DAILY 06/03/21 [History] Follow up Appointment(s)/Referral(s): Jorge Quinones MD [STAFF PHYSICIAN] - 6 Weeks Discharge Disposition: HOME SELF-CARE
[2021-06-04 16:13] VITALS: BP 113/72; TEMP 98.3
== END 2021-06-04 16:10 | disposition home or self-care (01) | DRG 807 ==
LOC: FBPOP 03:54 → 4FBP 04:27
PROVIDERS: ADMIT Obstetrics & Gynecology Obstetrics; ATTEND Obstetrics & Gynecology
PROC: 10E0XZZ Delivery of Products of Conception, External Approach (ICD-10-PCS; principal; 2021-06-03)
PROC: 3E033VJ Introduction of Other Hormone into Peripheral Vein, Percutaneous Approach (ICD-10-PCS; 2021-06-03)
DX: O80 Encounter for full-term uncomplicated delivery (principal); Z37.0 Single live birth; Z20.822 Contact with and (suspected) exposure to COVID-19; Z3A.39 39 weeks gestation of pregnancy; Z87.19 Personal history of other diseases of the digestive system; Z86.14 Personal history of Methicillin resistant Staphylococcus aureus infection
CPT/HCPCS: 59025; 84112; 85025; 86850; 86900; 86901; 99213

== ENCOUNTER 2024-11-15 17:00 | Inpatient (IN) | payer OTHER ==
[2024-11-15] MEDS: DINOPROSTONE 10 MG INSERT.ER VAGINAL ONE (19:40)
[2024-11-15] MEDS ORDERED: METHYLERGONOVINE 0.2 MG/ML 1 ML AMP IM PRN (22:07)
[2024-11-15] MEDS ORDERED: miSOPROStoL 200 MCG TAB RECTAL PRN (22:07)
[2024-11-15] MEDS ORDERED: miSOPROStoL 200 MCG TAB PO PRN (22:07)
[2024-11-15] MEDS ORDERED: TRANEXAMIC 1,000 MG/100ML-NACL 1,000 MG in EMPTY BAG 1 BAG IV PRN (22:07)
[2024-11-15] MEDS ORDERED: CARBOPROST TROMETHAMINE 250 MCG/ML 1 ML AMP IM PRN (22:07)
[2024-11-15] MEDS ORDERED: LIDOCAINE 0.5% (PF) 5 MG/ML (50 ML SDV) SQ PRN (22:07)
[2024-11-15] MEDS ORDERED: TERBUTALINE 1 MG/ML VIAL SQ PRN (22:07)
[2024-11-15] MEDS ORDERED: OXYTOCIN 10 UNIT/ML 1 ML VIAL IM PRN (22:07)
[2024-11-15 22:17] LABS: Basophils # (A) 0.03 10*3/uL (0.00-0.10); Basophils % (A) 0.3 %; Eosinophils # (A) 0.06 10*3/uL (0.04-0.35); Eosinophils % (A) 0.5 %; HCT 35.8 % (37.2-46.3); Lymphocytes # (A) 2.47 10*3/uL (0.90-5.00); Lymphocytes % (A) 22.1 %; MCH 26.7 pg (27.0-32.0); MCHC 33.5 g/dL (32.0-37.0); MCV 79.6 fL (80.0-97.0); Mean Platelet Volume 11.1 fL (9.5-12.2); Monocytes # (A) 0.96 10*3/uL (0.20-1.00); Monocytes % (A) 8.6 %; Neutrophils # (A) 7.47 10*3/uL (1.80-7.70); Neutrophils % (A) 66.7 %; Platelet Count 193 10*3/uL (140-440); RDW 14.5 % (11.5-14.5); WBC 11.19 10*3/uL (4.50-10.00)
[2024-11-15] MEDS: BUTORPHANOL 1 MG/ML 1 ML VIAL IV PRN (22:55)
[2024-11-15] MEDS: LACTATED RINGERS 1,000 ML IV SCH (22:57)
[2024-11-16] MEDS: OXYTOCIN 30 UNITS/500 ML NS 30 UNIT in SALINE 1 500ML.BAG IV SCH (06:39)
--- NOTE | 2024-11-16 08:37 | P.HPOB ---
History of Present Illness H&P Date: 11/16/24 Chief Complaint: 39+ weeks, elective induction The patient is a 24-year-old 2 para 1-0-0-1 admitted at 39+ weeks as established by last menstrual period and confirmed by 13-week ultrasound. She is admitted for elective induction of labor with a relatively unfavorable cervix and all signs reassuring, category 1 heart rate tracing. She had Cervidil placed for cervical ripening last evening but shortly thereafter had fairly significant tachysystole requiring its removal. She continued to contract throughout the night and this morning is in some discomfort. Her has been entirely uncomplicated and her group B strep status is negative. Obstetrical history: 2 para 1-0-0-1 with 1 term vaginal delivery without complications. Current statistics are listed in history of present illness. EDC of 11/21/2024 was established by last menstrual period and confirmed by 13-week ultrasound. Laboratory workup demonstrates a blood type of O+ with a negative antibody screen. Rubella status is immune. The remainder of the laboratory workup was within normal limits. 1 hour Glucola was normal and group B strep status is negative. Gynecologic history: Unremarkable with no history of any infections to include STDs. Review of Systems Review of systems is confined to history of present illness. Past Medical History Past Medical History: No Reported History Additional Past Medical History / Comment(s): herniated discs in back History of Any Multi-Drug Resistant Organisms: MRSA Date of last positivie culture/infection: 2014 MDRO Source:: foot Past Surgical History: Adenoidectomy, Ear Surgery, Hernia Repair, Tonsillectomy Additional Past Surgical History / Comment(s): jaw Past Anesthesia/Blood Transfusion Reactions: No Reported Reaction Past Psychological History: No Psychological Hx Reported Smoking Status: Never smoker Past Alcohol Use History: None Reported, Occasional Past Drug Use History: None Reported - Past Family History Mother Family Medical History: No Reported History Medications and Allergies Home Medications Medication Instructions Recorded Confirmed Type Pnv No.95/Ferrous Fum/Folic AC 1 tab PO DAILY 06/03/21 11/15/24 History [ Multivitamin Tablet] Aspirin 81 mg PO DAILY 11/15/24 11/15/24 History Allergies Allergy/AdvReac Type Severity Reaction Status Date / Time No Known Allergies Allergy Verified 11/15/24 19:09 Exam Vital Signs Pulse Resp BP 11/15/24 19:07 81 16 119/76 Intake and Output 11/15/24 11/16/24 11/16/24 22:59 06:59 14:59 Other: # Voids 1 1 Weight 91.172 kg General, this is a well-developed, well-nourished white female in no acute distress. Her heart has a regular rhythm and rate without murmur. Her lungs clear to auscultation bilaterally in all juarez. Her abdomen is gravid, nondistended, has normal active bowel sounds, soft, nontender, and without any palpable masses aside from the uterine fundus. Her extremities are without any cyanosis, clubbing, or significant edema and are nontender to palpation bilaterally. Digital cervical examination demonstrates her cervix to be 2+ centimeters dilated, 60% effaced, with a vertex in presentation at -2 station. The cervix is quite posterior. Nevertheless, artificial rupture of membranes is carried out demonstrating clear fluid. Results Result Diagrams: 11/15/24 22:07 Abnormal Lab Results - Last 24 Hours (Table) 11/15/24 Range/Units 22:07 WBC 11.19 H (4.50-10.00) 10*3/uL Hct 35.8 L (37.2-46.3) % MCV 79.6 L (80.0-97.0) fL MCH 26.7 L (27.0-32.0) pg Immature Gran # 0.20 H (0.00-0.04) 10*3/uL Assessment and Plan (1) Term Current Visit: Yes Status: Acute Code(s): Z34.90 - ENCNTR FOR SUPRVSN OF NORMAL , UNSP, UNSP TRIMESTER SNOMED Code(s): 53477354 Plan: Patient has been admitted for Pitocin induction which has been started. She has undergone artificial rupture of membranes. She will have close maternal and surveillance and expectant management will be practiced. She is a good candidate for either IV or epidural analgesia, show she may choose.
[2024-11-16] MEDS ORDERED: diphenhydrAMINE 50 MG CAP PO PRN (14:34)
[2024-11-16] MEDS ORDERED: HYDROCORTISONE 2.5% RECTAL CREAM 30 GM TUBE RECTAL PRN (14:34)
[2024-11-16] MEDS ORDERED: diphenhydrAMINE 25 MG CAP PO PRN (14:34)
[2024-11-16] MEDS ORDERED: diphenhydrAMINE 50 MG/ML 1 ML VIAL IVP PRN ×2 (14:34)
[2024-11-16] MEDS ORDERED: ZOLPIDEM 5 MG TAB PO PRN (14:34)
[2024-11-16] MEDS ORDERED: SIMETHICONE 80 MG CHEWABLE PO PRN (14:34)
[2024-11-16] MEDS ORDERED: BENZOCAINE/MENTHOL SPRAY 1 GM/SPRAY AEROSOL TOPICAL PRN (14:34)
[2024-11-16] MEDS ORDERED: LANOLIN CREAM 1 GM TUBE TOPICAL PRN (14:34)
--- NOTE | 2024-11-16 14:38 | P.PROBDLV ---
Vaginal Delivery Note - . Vaginal Delivery Note: The patient is a 24-year-old 2 para 1-0-0-1 admitted at 39-2/7 weeks by good dating parameters. She is admitted for an elective induction of labor with unfavorable cervix. was entirely uncomplicated and group B strep status is negative. She was initially admitted the night prior to intended date of induction at which time Cervidil was placed. She began to have a significant amount of contractions requiring removal of the Cervidil secondary to t achysystole after approximately 3 to [address]. She continued to contract overnight and ultimately did make enough change to the fact Pitocin augmentation of the morning followed by artificial rupture of membranes for clear fluid. She had an epidural catheter placed for analgesia and then progressed fairly steadily through the latent phase and into the active phase of labor. She ultimately progressed to complete and pushed over the course of 2-3 contractions to a normal spontaneous vaginal delivery of a viable 7 pound 14 ounce baby girl with Apgars of 9 at 1 minute and 9 at 5 minutes delivered in the left occiput anterior position. There was a nuchal cord x 1 which was reduced following delivery of the infant. The placenta was delivered spontaneously, intact, and grossly normal with a grossly normal, centrally inserted three- vessel cord. There was a very small first-degree midline perineal laceration which was gaping slightly and therefore closed with a single [id number] stitch of 3-0 chromic catgut without difficulty. There were no other lacerations of the perineum, vagina, or cervix. Estimated blood loss for the case was 200 mL or less. There were no complications. All sponge, instrument, and needle counts were correct. Both mother and are resting comfortably in recovery.
[2024-11-16] MEDS ORDERED: OXYTOCIN 30 UNITS/500 ML NS 30 UNIT in SALINE 1 500ML.BAG IV SCH (14:45)
[2024-11-16] MEDS: ACETAMINOPHEN TAB 500 MG TAB PO PRN (14:50)
[2024-11-16] MEDS: IBUPROFEN 800 MG TAB PO PRN (21:01)
[2024-11-16] MEDS: SENNOSIDES-DOCUSATE SODIUM 1 EACH TAB PO SCH (21:02)
[2024-11-17 04:01] LABS: Basophils # (A) 0.04 10*3/uL (0.00-0.10); Basophils % (A) 0.3 %; Eosinophils # (A) 0.06 10*3/uL (0.04-0.35); Eosinophils % (A) 0.4 %; HCT 31.6 % (37.2-46.3); HGB 10.1 g/dL (12.0-15.0); Lymphocytes # (A) 2.56 10*3/uL (0.90-5.00); Lymphocytes % (A) 18.2 %; MCH 26.2 pg (27.0-32.0); MCV 81.9 fL (80.0-97.0); Mean Platelet Volume 12.2 fL (9.5-12.2); Monocytes # (A) 1.31 10*3/uL (0.20-1.00); Monocytes % (A) 9.3 %; Neutrophils # (A) 9.94 10*3/uL (1.80-7.70); Neutrophils % (A) 70.9 %; Platelet Count 173 10*3/uL (140-440); RBC 3.86 10*6/uL (4.10-5.20); WBC 14.04 10*3/uL (4.50-10.00)
[2024-11-17 08:28] VITALS: RESP 16
--- NOTE | 2024-11-17 08:44 | P.DS ---
Providers Date of admission: 11/15/24 18:48 Expected date of discharge: 11/17/24 Attending physician: Jorge Quinones Primary care physician: Jorge Quinones - Discharge Diagnosis(es) (1) Term Current Visit: Yes Status: Acute (2) Normal spontaneous vaginal delivery Current Visit: Yes Status: Acute Hospital Course: The patient is a 24-year-old 2 para 1-0-0-1 admitted at 39+ weeks by good dating parameters. She is admitted for elective induction with an unfavorable cervix. On admission all signs are reassuring with a category 1 heart rate tracing. She had a Cervidil placed for cervical ripening but had tachysystole several hours later and required removal. By the following morning, her cervix was favorable for artificial rupture of membranes which was carried out demonstrating clear fluid. She had Pitocin augmentation started. She later had an epidural catheter placed for analgesia and ultimately progressed to complete or after she pushed to a normal spontaneous vaginal delivery of a viable 7 pound 14 ounce baby girl with Apgars of 9 at 1 minute and 9 at 5 minutes. Her course was unremarkable with vital signs remaining stable and her temperature was afebrile throughout. She was deemed stable for discharge on day #1 and was discharged home to follow-up in the office in 6 weeks time routinely. Discharge instructions included calling for any significantly increased bleeding or foul-smelling lochia, significantly increased fever or abdominal pain, perineal complaints, breast complaints, or anything else that concerned her. She was additionally instructed to have nothing in the vagina for at least 6 weeks time to include intercourse. She understood her instructions and agrees to follow-up as noted above. Discharge medications included continued vitamins as she has opted to breast-feed. She was otherwise to use [id number] analgesic pain medications as needed. Maternal blood type is O+ and rubella status is immune. Procedures: #1. Cervidil cervical ripening #2. Pitocin induction #3. Artificial rupture of membranes #4. Epidural analgesia #5. Normal spontaneous vaginal delivery #6. Repair of perineal laceration Patient Condition at Discharge: Stable Plan - Discharge Summary Discharge Rx Participant: No New Discharge Prescriptions: No Action Pnv No.95/Ferrous Fum/Folic AC [ Multivitamin Tablet] 1 tab PO DAILY Aspirin 81 mg PO DAILY Discharge Medication List Pnv No.95/Ferrous Fum/Folic AC [ Multivitamin Tablet] 1 tab PO DAILY 06/03/21 [History] Aspirin 81 mg PO DAILY 11/15/24 [History] Follow up Appointment(s)/Referral(s): Jorge Quinones MD [Primary Care Provider] - 6 Weeks Discharge Disposition: HOME SELF-CARE
[2024-11-17 12:25] VITALS: BP 117/75; PULSE 63; TEMP 97.3
== END 2024-11-17 14:40 | disposition home or self-care (01) | DRG 807 ==
LOC: MERGE 17:00 → 4FBP 18:48
PROVIDERS: ADMIT Obstetrics & Gynecology; ATTEND Obstetrics & Gynecology
PROC: 10E0XZZ Delivery of Products of Conception, External Approach (ICD-10-PCS; principal; 2024-11-16)
PROC: 0HQ9XZZ Repair Perineum Skin, External Approach (ICD-10-PCS; 2024-11-16)
PROC: 3E033VJ Introduction of Other Hormone into Peripheral Vein, Percutaneous Approach (ICD-10-PCS; 2024-11-16)
PROC: 10907ZC Drainage of Amniotic Fluid, Therapeutic from Products of Conception, Via Natural or Artificial Opening (ICD-10-PCS; 2024-11-16)
PROC: 3E0P7VZ Introduction of Hormone into Female Reproductive, Via Natural or Artificial Opening (ICD-10-PCS; 2024-11-16)
DX: O26.893 Other specified pregnancy related conditions, third trimester (principal); Z37.0 Single live birth; O62.4 Hypertonic, incoordinate, and prolonged uterine contractions; O70.0 First degree perineal laceration during delivery; Z3A.39 39 weeks gestation of pregnancy; Z79.82 Long term (current) use of aspirin; Z87.19 Personal history of other diseases of the digestive system; Z86.14 Personal history of Methicillin resistant Staphylococcus aureus infection; Z67.40 Type O blood, Rh positive
CPT/HCPCS: 85025; 86850; 86900; 86901

== ENCOUNTER → 2025-03-09 | Outpatient (CLI) | payer OTHER ==
--- NOTE | 2025-03-09 11:05 | USB ---
Reason for Exam: Clinical finding. Technique: Method: Targeted. Findings: The axilla of the right breast was scanned. Targeted axillary ultrasound shows a borderline enlarged 1.9 x 1.4 x 1.3 cm lymph node. Shows uniform mild thickening up to 3.5 mm. Additional smaller nodes are present. Likely reactive/post inflammatory and can be reassessed in 3 months. Overall Assessment: Probably benign, BI-RAD 3 Management: Diagnostic Breast Ultrasound of the right breast in 3 months. A clinical breast exam by your physician is recommended on an annual basis and results should be correlated with mammographic findings. This exam should not preclude additional follow-up of suspicious palpable abnormalities. Results were given to the patient verbally at the time of exam. [facility], , 03/09/2025 11:01 AM. Electronically signed and approved by: Flavio Gerardo M.D. Radiologist
--- NOTE | 2025-03-09 11:05 | USB ---
Reason for Exam: Clinical finding. Technique: Method: Targeted. Findings: The axilla of the left breast was scanned. Targeted axillary ultrasound shows a borderline enlarged 1.8 x 1.5 x 0.8 cm lymph node. Shows uniform mild thickening up to 3.3 mm. Additional smaller nodes are present. Likely reactive/post inflammatory and can be reassessed in 3 months. Overall Assessment: Probably benign, BI-RAD 3 Management: Diagnostic Breast Ultrasound of the left breast in 3 months. A clinical breast exam by your physician is recommended on an annual basis and results should be correlated with mammographic findings. This exam should not preclude additional follow-up of suspicious palpable abnormalities. Results were given to the patient verbally at the time of exam. [facility], , 03/09/2025 11:02 AM. Electronically signed and approved by: Flavio Gerardo M.D. Radiologist
== END | disposition home or self-care (01) ==
LOC: RADUSWWP 10:23
PROVIDERS: ATTEND Family Medicine
DX: R59.0 Localized enlarged lymph nodes (principal)